=== PATIENT | male | born 1965 | race Caucasian/White ===

== ENCOUNTER 2024-03-23 14:03 | Emergency (ER) | payer OTHER, SELFPAY ==
[2024-03-23 14:08] VITALS: BP 136/83
[2024-03-23 14:39] LABS: % Basophils 1.1 % (0-2); % Eosinophils 2.3 % (0-6); % Immature Granulocytes 0.3 % (0-0.5); % Lymphocytes 29.9 % (20.5-51.1); % Monocytes 12.8 % (1.7-9.3); % Neutrophils 53.6 % (42.2-75.2); Absolute Basophils 0.1 10^3/uL (0-0.2); Absolute Eosinophils 0.2 10^3/uL (0-0.7); Absolute Monocytes 0.8 10^3/uL (0.1-0.6); Absolute Neutrophils 3.5 10^3/uL (1.4-6.5); Hematocrit 43.5 % (39.0-52.0); Hemoglobin 15.3 g/dL (13.0-18.0); Mean Corp Hgb Conc. 35.2 g/dL (33.0-37.0); Mean Corpuscular Volume 93.8 fL (80.0-94.0); Mean Platelet Volume 9.7 fL (7.4-10.4); Nucleated Red Blood Cells % 0 % (-); Platelet Count 201 10^3/uL (130-400); Red Blood Cell Count 4.64 10^6/uL (4.70-6.10); Red Cell Dist. Width 13.5 % (11.5-14.5); White Blood Cell Count 6.6 10^3/uL (4.8-10.8)
[2024-03-23 14:51] LABS: ALT (SGPT) 116 U/L (0-50); AST (SGOT) 111 U/L (17-59); Albumin 4.7 g/dl (3.5-5.0); Alkaline Phosphatase 98 U/L (38-126); Blood Urea Nitrogen 15 mg/dl (9-20); Calcium 9.9 mg/dl (8.4-10.2); Carbon Dioxide 20 mmol/L (22-30); Chloride 98 mmol/L (98-107); Glucose 105 mg/dl (70-99); Potassium 4.5 mmol/L (3.5-5.1); Sodium 133 mmol/L (135-145); Total Protein 8.2 g/dl (6.3-8.2); eGFR > 60.00
[2024-03-23 15:02] LABS: Troponin I < 0.012 ng/ml
--- NOTE | 2024-03-23 16:15 | ED.GENMED ---
History of Present Illness
General
Chief Complaint: Chest Pain
Source: patient
Time Seen by Provider: 03/23/24 16:14
History of Present Illness
History of Present Illness:
59-year-old male presents to the emergency room complaining of left-sided chest pain. Patient states he had just started exercising on the treadmill when the pain occurred. It was not associated with diaphoresis, nausea or shortness of breath. He
continues to have a mild ache. He thought the pain was likely due to him starting to workout but was concerned about a heart issue. Patient endorses anxiety and has been seen in the emergency room for chest pain before.
Past History
Past History
ED Past Medical History: Asthma, GERD and Hypercholesterolemia
ED Past Surgical History: None
Patient has exhibited threatening behavior?: No
Social History
Tobacco: Non-smoker
Alcohol: None
Drug: None
Personal:
Living: with family
Employment: Employed
Family History
Family History: Early CAD
Phy Exam
Physical Exam
Physical Exam:
General: Awake, Alert, Oriented X3. No acute distress.
Vitals: unremarkable
Head: Atraumatic
Eyes: Pupils equal, EOMI
Throat: Airway intact, no exudates
Neck: Trachea midline
Lungs: Clear and equal b/l
Heart: Regular rate, no murmurs
Abd: Soft, Nontender, No pulsatile mass
Neuro: Nonfocal
Skin: Warm, dry, no rash
Extremities: pulses equal b/l, no edema
Scores
Heart Score for Chest Pain Patients
STEMI patient?: No
History: Slightly or Non-Suspicious
ECG: Normal
Age: >45 - <65 years
Risk Factors: 1 or 2 Risk Factors
Troponin: </= Normal Limit
Heart Score for Chest Pain Patients: 2
Heart Score Risk: 2.5% MACE over next 6 weeks
Course
Orders/Labs/Results
Orders:
Orders
03/23/24 14:04
Electrocardiogram (*1) Urgent
Reason for Study: Chest Pain
EKG- Treatment ONCE
03/23/24 14:12
Chest [CR Chest - 2 Views ] Urgent
Comment:
Reason For Exam: chest pain
03/23/24 14:22
Complete Blood Count/With Diff Urgent
Comprehensive Metabolic Panel Urgent
Troponin I Urgent
03/23/24 16:26
Electrocardiogram (*1) Urgent
Reason for Study: Chest Pain
EKG- Treatment ONCE
03/23/24 16:50
Troponin I Urgent
Abnormal Lab Results
03/23/24
14:22
RBC 4.64 L 10^6/uL
(4.70-6.10)
MCH 33.0 H pg
(27.0-31.0)
Absolute Monos (auto) 0.8 H 10^3/uL
(0.1-0.6)
Monocytes % 12.8 H %
(1.7-9.3)
Sodium 133 L mmol/L
(135-145)
Carbon Dioxide 20 L mmol/L
(22-30)
Glucose 105 H mg/dl
(70-99)
AST 111 H U/L
(17-59)
ALT 116 H U/L
(0-50)
03/23/24 14:22
03/23/24 14:22
Vital Signs
Initial and Last Documented VS:
Initial Vital Signs
Temp Pulse Resp BP Pulse Ox
98.1 F 94 18 136/83 99
03/23/24 14:08 03/23/24 14:08 03/23/24 14:08 03/23/24 14:08 03/23/24 14:08
Last Documented Vital Signs
Temp Pulse Resp BP Pulse Ox
98.1 F 74 15 129/81 95
03/23/24 14:08 03/23/24 18:00 03/23/24 17:30 03/23/24 18:00 03/23/24 18:00
MDM/Problems Addressed
Differential Diagnosis Includes:
Angina, pneumothorax, chest wall strain
MDM/Problems Addressed:
Patient presents with chest pain which does not sound highly concerning. EKG shows no acute ischemic changes. First set of labs are reassuring. Does have mildly elevated LFTs though he does endorse significant alcohol use over the past few weeks.
He is trying to get back into shape now hence his exercise and cutting back on alcohol use. We will repeat his EKG and troponin. If these remain acceptable we will have the patient follow-up with his cardiology via the chest pain hotline
*Radiology
Radiology exam reviewed: preliminary read by ED provider (No acute disease by my review of the chest x-ray)
*Pulse Oximetry
Patient hypoxic: no
*EKG
Interpreted by ED Provider?: Yes
Heart Rate: 91
Rate: normal
Rhythm: sinus
[place]: normal axis
Interval: normal interval
QRS Pattern: normal QRS
Ischemia: no ischemia
*[employer] Lead Interpretation
Rate: normal
Interpretation: normal
Rhythm: sinus
*Critical Care Note
Total Time (30-74mins, 75-104mins- exclusive of procedures): Not Applicable
ED Attending Note
-
Portions of this chart may have been created with voice recognition software.� Occasional wrong word or��sound alike� substitutions may have occurred due to the inherent limitations of voice recognition software.
Discharge Plan
Departure
Patient Disposition: Home (Routine Discharge)
Date of Disposition: 03/23/24
Time of Disposition: 17:51
Patient with high blood pressure during this ER visit?: No
Condition: Good
Discharge Problem:
Chest pain
Instructions: Chest Pain DCA Follow Up
Prescriptions:
No Action
fluticasone propion-salmeterol 1 DISK blister with device
1 puff inhalation DAILY
fexofenadine [Swapna] 30 MG tablet
30 mg PO DAILY
omeprazole magnesium [Prilosec OTC] 20 MG tablet,delayed release (DR/EC)
20 mg PO DAILY
albuterol sulfate 1 PUFF HFA aerosol inhaler
1 puff inhalation PRN PRN (Reason: SOB)
alprazolam 0.25 mg tablet
0.25 mg PO BID PRN (Reason: anxiety) Qty: 7 0RF
Referrals:
Enrique Rodrigues MD [Family Provider] -
Interventions
Interventions:
*Risk Screen - Suicide Last Done: 03/23/24 14:08
*General Assessment Last Done: 03/23/24 14:08
*Neglect/Abuse Screening Last Done: 03/23/24 14:08
*ED COVID-19 Vaccine History Last Done: 03/23/24 16:42
*Nursing Disposition Last Done: 03/23/24 18:11
ED- Cardiac Assessment Last Done: 03/23/24 16:47
Discharge Date and Time
Discharge Date/Time: 03/23/24 18:29
Print Language: [id number]
[2024-03-23 16:40] VITALS: BP 122/86
[2024-03-23 17:00] VITALS: BP 132/78
[2024-03-23 17:20] LABS: Troponin I < 0.012 ng/ml
[2024-03-23 18:00] VITALS: BP 129/81
== END 2024-03-23 18:29 | disposition home or self-care (01) ==
LOC: EMR 14:03
PROVIDERS: Emergency Medicine; EMERGENCY PHYSICIAN Emergency Medicine; FAMILY PHYSICIAN Internal Medicine
DX: R07.89 Other chest pain (principal); J45.909 Unspecified asthma, uncomplicated; E78.00 Pure hypercholesterolemia, unspecified; K21.9 Gastro-esophageal reflux disease without esophagitis
CPT/HCPCS: 99284; 71046; 80053; 84484; 85025; 93005; 99285